=== PATIENT | male | born 2000 | race Caucasian/White ===

== ENCOUNTER 2020-01-23 21:48 | Emergency (ER) | payer MEDICAID ==
[~2020-01-23] VITALS: Ht 180.3 cm; Wt 81.6 kg
[2020-01-23 21:48] VITALS: BP_SYST 142
[2020-01-23 22:28] VITALS: BP_SYST 142
== END 2020-01-23 22:28 | disposition home or self-care (01) ==
LOC: SED 21:48
DX: F41.9 Anxiety disorder, unspecified (principal); R00.2 Palpitations
CPT/HCPCS: 99283

== ENCOUNTER 2022-05-05 08:48 | Emergency (ER) | payer SELFPAY ==
[~2022-05-05] VITALS: Ht 182.9 cm; Wt 99.8 kg
[2022-05-05 08:55] VITALS: BP_SYST 140
[2022-05-05 09:35] LABS: BASOPHILS # (AUTO) 0.1 K/uL (0.0-0.2); BASOPHILS % (AUTO) 1.3 % (0.0-2.0); EOSINOPHILS # (AUTO) 0.1 K/uL (0.0-0.4); EOSINOPHILS % (AUTO) 2.4 % (0.0-4.0); HEMATOCRIT 47.8 % (36-54); HEMOGLOBIN 16.3 g/dL (14.0-18.0); LYMPHOCYTES # (AUTO) 1.9 K/uL (1.0-5.5); LYMPHOCYTES % (AUTO) 40.2 % (20.5-51.5); MEAN CORPUSCULAR HEMOGLOBIN 30 pg (27-31); MEAN CORPUSCULAR HGB CONC 34 % (32-36); MEAN CORPUSCULAR VOLUME 87 fL (79.0-98.0); MONOCYTES # (AUTO) 0.4 K/uL (0.0-1.0); MONOCYTES % (AUTO) 7.8 % (1.7-9.3); NEUTROPHILS # (AUTO) 2.3 K/uL (1.8-7.7); NEUTROPHILS % (AUTO) 48.3 % (40.0-70.0); PLATELET COUNT (AUTO) 227 K/uL (130-430); RED BLOOD CELL COUNT(AUTO) 5.51 MIL/uL (4.2-6.2); RED CELL DISTRIBUTION WIDTH 13.8 % (9.0-15.0); WHITE BLOOD COUNT (AUTO) 4.7 K/uL (4.8-10.8)
[2022-05-05 09:42] LABS: CALCIUM 9.2 mg/dL (8.4-11.0); CREATININE 1.05 mg/dL (0.55-1.30); POTASSIUM 3.9 mmol/L (3.5-5.1)
[2022-05-05 09:50] LABS: ALBUMIN 3.9 g/dL (3.4-4.8); TOTAL BILIRUBIN 0.8 mg/dL (0.0-1.0)
[2022-05-05 10:25] VITALS: BP_SYST 137
== END 2022-05-05 10:25 | disposition home or self-care (01) ==
LOC: SED 08:48
DX: R20.2 Paresthesia of skin (principal); Z79.899 Other long term (current) drug therapy
CPT/HCPCS: 36415; 70450-TC; 76376; 80053; 85025; 93005; 99285